=== PATIENT | female | born 1955 | race Caucasian/White ===

== ENCOUNTER 2018-07-01 14:01 | Observation (INO) | payer MEDICARE, BC ==
[~2018-07-01] VITALS: Ht 165.1 cm; Wt 96.0 kg
[2018-07-01] VITALS (10 sets, daily range): BP systolic 122–174; BP diastolic 74–104
[2018-07-01] MEDS ORDERED: diphenhydrAMINE 25mg capsule PO ONE (15:05)
[2018-07-01] MEDS ORDERED: LORazepam 0.5 MG tablet PO ONE (15:05)
[2018-07-01] MEDS ORDERED: ENAL20TA75 PO (15:18)
[2018-07-01] MEDS ORDERED: SERT25TA PO (15:18)
[2018-07-01] MEDS ORDERED: ASPI81TA52 PO (15:18)
[2018-07-01] MEDS ORDERED: HYDR-3972 PO (15:18)
[2018-07-01] MEDS ORDERED: MULT1TAB74 PO (15:18)
[2018-07-01] MEDS ORDERED: METO100T14 PO (15:18)
[2018-07-01] MEDS ORDERED: ALBU8.5H8 INH (15:18)
[2018-07-01] MEDS ORDERED: NITR0.4T51 SL (15:18)
[2018-07-01] MEDS ORDERED: ATOR40TA PO (15:18)
[2018-07-01] MEDS ORDERED: DIAZ10TA4 PO (15:18)
[2018-07-01] MEDS ORDERED: CHOL10002 PO (15:18)
[2018-07-01] MEDS ORDERED: OMEP40CA37 PO (15:18)
[2018-07-01] MEDS: normal saline 1000ml 1,000 ML IV SCH (15:53)
[2018-07-01] MEDS ORDERED: fentaNYL/PF 50MCG/1 ML 2ML syringe ONE (16:29)
[2018-07-01] MEDS ORDERED: LIDOcaine 1% (10mg/ml)w/preservative injection 20ml MDV ONE (16:29)
[2018-07-01] MEDS ORDERED: midazolam 2 mg/2 ml injection ONE (16:29)
[2018-07-01] MEDS ORDERED: heparin 1,000 UNITS/NS 500ml 500 ML ONE ×2 (16:30→16:58)
[2018-07-01] MEDS ORDERED: iohexol 350MG/ML 100ml bottle IV ONE (16:30)
[2018-07-01] MEDS ORDERED: atropine 0.1mg/ml 10ml syringe ONE (18:06)
[2018-07-01] MEDS ORDERED: heparin 1,000unit/ml 10ml vial 10 ML ONE (18:06)
[2018-07-01] MEDS ORDERED: ticagrelor 90mg tablet ONE (18:06)
[2018-07-01] MEDS ORDERED: iohexol 350 MG/ML 50ML vial IV ONE (18:08)
[2018-07-01] MEDS ORDERED: hydrALAZINE 20mg/ml inj. IV ONE (18:21)
[2018-07-01] MEDS ORDERED: HYDROcodone/acetaminophen 5mg/325mg tablet PO PRN (19:25)
[2018-07-01] MEDS ORDERED: ondansetron/PF 4mg/2ml inj IV PRN (19:25)
[2018-07-01] MEDS ORDERED: proCHLORperazine 10 MG/2 ml inj IV PRN (19:30)
[2018-07-01] MEDS ORDERED: OXAZEpam 15mg capsule PO PRN (19:30)
[2018-07-01] MEDS ORDERED: HYDROcodone/acetaminophen 10/325mg tab PO PRN ×2 (19:30→21:35)
[2018-07-01] MEDS ORDERED: nitroGLYCERIN 0.4mg SUBLingual tab SL PRN (21:35)
[2018-07-02] MEDS ORDERED: albuterol 2.5 MG/3 ML nebule NEB PRN
[2018-07-02] MEDS: normal saline 1000ml 1,000 ML IV SCH (02:27)
[2018-07-02 03:00] VITALS: BP 144/73
[2018-07-02 05:18] LABS: ALBUMIN 3.1 G/DL (3.4-5.0); ANION GAP 6 (8-16); BLOOD UREA NITROGEN 12 MG/DL (7-18); BUN/CREATININE RATIO 12.9 (6.6-38.0); CALCIUM 8.6 MG/DL (8.5-10.1); CHLORIDE 104 MMOL/L (99-107); CHOL/HDL RATIO 4.6 (0.00-4.99); CHOLESTEROL 160 MG/DL (0-200); CREATININE 0.93 MG/DL (0.40-0.90); GLUCOSE 123 MG/DL (70-104); HDL CHOLESTEROL 35 MG/DL (35-60); LDL CHOLESTEROL 80 MG/DL (50-100); SODIUM 142 MMOL/L (135-145); TOTAL CARBON DIOXIDE 32.3 MMOL/L (24-32); TRIGLYCERIDES 329 MG/DL (20-135); eGFR 61 ML/MIN
[2018-07-02 06:00] VITALS: BP 133/71
[2018-07-02] MEDS ORDERED: METO50TA16 PO (06:25)
[2018-07-02] MEDS ORDERED: NIFE60TA2 PO (06:25)
[2018-07-02] MEDS ORDERED: TICA90TA PO (06:25)
[2018-07-02 07:51] VITALS: BP_SYST 133
[2018-07-02] MEDS ORDERED: atorvastatin 20mg tablet PO SCH (08:00)
[2018-07-02] MEDS ORDERED: ticagrelor 90mg tablet PO SCH (08:00)
[2018-07-02] MEDS ORDERED: diazepam 5mg tablet PO PRN (08:00)
[2018-07-02] MEDS ORDERED: multivitamins, therapeutics tablet PO SCH (08:00)
[2018-07-02] MEDS ORDERED: metoprolol tartrate 50mg tablet PO SCH (08:00)
[2018-07-02] MEDS ORDERED: pantoprazole 40mg Tablet.DR PO SCH (08:00)
[2018-07-02] MEDS ORDERED: vitamin D (cholecalciferol) 1,000 unit tablet PO SCH (08:00)
[2018-07-02] MEDS ORDERED: sertraline 50mg tablet PO SCH ×2 (08:00)
[2018-07-02] MEDS ORDERED: aspirin 81mg tablet.DR PO SCH (08:00)
[2018-07-02] MEDS ORDERED: lisinopril 20mg tablet PO SCH (08:00)
== END 2018-07-02 11:10 | disposition home or self-care (01) ==
LOC: SSTAY O 14:01 → PCU 3S 21:03
PROVIDERS: ADMIT Internal Medicine Interventional Cardiology; ATTEND Internal Medicine Interventional Cardiology
DX: I25.110 Atherosclerotic heart disease of native coronary artery with unstable angina pectoris (principal); I10 Essential (primary) hypertension; E78.5 Hyperlipidemia, unspecified; R94.39 Abnormal result of other cardiovascular function study; F17.200 Nicotine dependence, unspecified, uncomplicated; F41.9 Anxiety disorder, unspecified
CPT/HCPCS: 36415; 80048; 80061; 87070; 93005; 93458; 96374; 99152; A6257; C1874; C9600; G0378; J0360; J1644; J2001; J2250; J2405; J3010; J7030; Q0163; Q9967; 99153; A4620; C1725; C1760; C1769; J0461

== ENCOUNTER 2021-10-30 14:26 | Day surgery (SDC) | payer MEDICARE, BC ==
[2021-10-25 15:49] LABS: BASOPHILS # (AUTO) 0.1 X10'3 (0-0.2); BASOPHILS % (AUTO) 0.7 % (0-1); EOSINOPHILS # (AUTO) 0.5 X10'3 (0-0.9); EOSINOPHILS % (AUTO) 3.7 % (0-6); HEMATOCRIT 42.4 % (35.0-45.0); LYMPHOCYTES # (AUTO) 2.4 X10'3 (1.1-4.8); LYMPHOCYTES % (AUTO) 18.9 % (21-51); MEAN CORPUSCULAR HEMOGLOBIN 28.8 PG (27.0-31.0); MEAN CORPUSCULAR HGB CONC 32.9 g/dL (33.0-36.5); MEAN CORPUSCULAR VOLUME 87.6 FL (78-98); MEAN PLATELET VOLUME 7.9 FL (7.4-10.4); MONOCYTES # (AUTO) 0.5 X10'3 (0-0.9); MONOCYTES % (AUTO) 4.1 % (2-12); NEUTROPHILS # (AUTO) 9.3 X10'3 (1.8-7.7); NEUTROPHILS % (AUTO) 72.6 % (42-75); PLATELET COUNT 289 X10'3 (140-440); RED BLOOD COUNT 4.84 X10'6 (4.20-5.60); RED CELL DISTRIBUTION WIDTH 16.5 % (11.5-14.5); WHITE BLOOD COUNT 12.8 X10'3 (4.5-11.0)
[2021-10-25 15:55] LABS: APTT 26 SECONDS (22-32)
[2021-10-25 15:57] LABS: ALBUMIN 3.3 G/DL (3.4-5.0); BLOOD UREA NITROGEN 16 MG/DL (7-18); BUN/CREATININE RATIO 17.6 (6.6-38.0); CALCIUM 8.6 MG/DL (8.5-10.1); CHLORIDE 103 MMOL/L (99-107); CREATININE 0.91 MG/DL (0.40-0.90); GLUCOSE 159 MG/DL (70-104); POTASSIUM 4.5 MMOL/L (3.5-5.1); eGFR 61 ML/MIN
[2021-10-25 16:03] LABS: ANION GAP 4 (8-16); SODIUM 139 MMOL/L (135-145)
[2021-10-30] VITALS (11 sets, daily range): BP systolic 127–150; BP diastolic 55–91
[~2021-10-30] VITALS: Ht 165.1 cm; Wt 105.5 kg
[~2021-10-30 14:26] MED LIST: ALBU8.5H17 INH; ASPI81TA52 PO; ATOR40TA PO; CHOL10002 PO; DIAZ10TA4 PO; ENAL20TA75 PO; HYDR-3972 PO; METO50TA16 PO; MULT-620 PO; NIFE60TA2 PO; NITR0.4T51 SL; OMEP40CA21 PO; SERT25TA PO; TICA90TA PO; verapamil 2.5 mg/ml inj IV ONE
[2021-10-30] MEDS ORDERED: diphenhydrAMINE 25mg capsule PO PRN (14:55)
[2021-10-30] MEDS ORDERED: LORazepam 0.5 MG tablet PO PRN (14:55)
[2021-10-30] MEDS ORDERED: normal saline 1,000 ML IV SCH (14:55)
[2021-10-30] MEDS ORDERED: ISOS60TA71 PO (15:03)
[2021-10-30] MEDS ORDERED: TIOT18CA3 (15:03)
[2021-10-30] MEDS ORDERED: METO50TA17 PO (15:03)
[2021-10-30] MEDS ORDERED: LIDOcaine 1% (10mg/ml)w/preservative inj. 20ml MDV ONE (16:00)
[2021-10-30] MEDS ORDERED: nitroGLYCERIN-Tridil 50MG/D5W 250 ML IV ONE (16:00)
[2021-10-30] MEDS ORDERED: midazolam 1 mg/ML 2ml injection ONE ×2 (16:00→16:34)
[2021-10-30] MEDS ORDERED: verapamil 2.5 mg/ml inj IV ONE (16:00)
[2021-10-30] MEDS ORDERED: fentaNYL/PF 50MCG/1 ML 2ML syringe ONE (16:00)
[2021-10-30] MEDS ORDERED: iohexol 350MG/ML 100ml bottle IV ONE (16:01)
[2021-10-30] MEDS ORDERED: heparin 1,000unit/ml 10ml vial 10 ML ONE (16:01)
--- NOTE | 2021-10-30 17:15 | NUR ---
Received pt form prosthetics lab technician. Vasc band X2 to right arm. Phoned daughter and notified of approximate DC home time. Offered pt sandwich to eat, pt wants to sleep currently, will continue to check in on pt.
--- NOTE | 2021-10-30 17:51 | NUR ---
Pt eating sandwich and drinking water without difficulty. Vasc bands X2 remain inflated without sighs of bleeding, or hematoma.
--- NOTE | 2021-10-30 19:00 | NUR ---
Vasc Bands removed. Small old quarter size hematoma noted between vasc bands, pt aware and visualized and felt hematoma. No new bleeding or oozing noted. Site cleaned with maxi swab, sterile 2x2 and tegaderm applied, with pressure dressing over top.
--- NOTE | 2021-10-30 19:15 | NUR ---
Written and Verbal DC instructions given to pt, verbalizes understanding.
--- NOTE | 2021-10-30 19:26 | NUR ---
Daughter at bedside, DC instructions gone over with daughter, verbalizes understanding. PIV DC cath intact. VSS. Denies pain at procedure site. Right radial dressing CD&I, no new bleeding, bruising or hematoma noted. RN assisted pt to get dressed. Pt stable on feet with amb and transfer to .
--- NOTE | 2021-10-30 19:35 | NUR ---
DC to home with daughter. Transferred pt to private car via WC, pt a ble to transfer self to car, steady on feet.
== END 2021-10-30 19:35 | disposition home or self-care (01) ==
LOC: SSTAY O 14:26
PROVIDERS: ATTEND Internal Medicine Interventional Cardiology
DX: R94.39 Abnormal result of other cardiovascular function study (principal); R07.89 Other chest pain; I25.118 Atherosclerotic heart disease of native coronary artery with other forms of angina pectoris; I10 Essential (primary) hypertension; E78.5 Hyperlipidemia, unspecified; Z79.899 Other long term (current) drug therapy; Z79.82 Long term (current) use of aspirin; F17.290 Nicotine dependence, other tobacco product, uncomplicated; Z95.5 Presence of coronary angioplasty implant and graft
CPT/HCPCS: 36415; 76937; 80048; 85025; 85610; 85730; 93005; 93458; 99152; 99153; C1769; C1894; J1644; J2250; J3010; J3490; Q0163; Q9967; A4620

== ENCOUNTER 2024-07-20 11:40 | Day surgery (SDC) | payer MEDICARE, BC ==
[2024-07-20] VITALS (10 sets, daily range): BP systolic 143–225; BP diastolic 84–122; PULSE 67–81; RESP 16; TEMP 98.1; O2SAT 94–97
[~2024-07-20] VITALS: Ht 165.1 cm; Wt 88.7 kg
[~2024-07-20 11:40] MED LIST changes: +ISOS60TA71 PO; -METO50TA16 PO; +METO50TA17 PO; -MULT-620 PO; -NIFE60TA2 PO; -TICA90TA PO; +TIOT18CA3; -verapamil 2.5 mg/ml inj IV ONE
[2024-07-20 12:32] LABS: BASOPHILS # (AUTO) 0.1 X10'3 (0-0.2); BASOPHILS % (AUTO) 0.9 % (0-1); EOSINOPHILS # (AUTO) 0.3 X10'3 (0-0.9); EOSINOPHILS % (AUTO) 2.6 % (0-6); HEMOGLOBIN 14.8 g/dl (12.0-16.0); LYMPHOCYTES # (AUTO) 2.5 X10'3 (1.1-4.8); LYMPHOCYTES % (AUTO) 19.4 % (21-51); MEAN CORPUSCULAR HEMOGLOBIN 29.7 PG (27.0-31.0); MEAN CORPUSCULAR HGB CONC 33.7 g/dL (33.0-36.5); MEAN CORPUSCULAR VOLUME 88.2 FL (78-98); MEAN PLATELET VOLUME 7.7 FL (7.4-10.4); MONOCYTES # (AUTO) 0.5 X10'3 (0-0.9); MONOCYTES % (AUTO) 4.1 % (2-12); NEUTROPHILS # (AUTO) 9.5 X10'3 (1.8-7.7); PLATELET COUNT 312 X10'3 (140-440); RED BLOOD COUNT 4.99 X10'6 (4.20-5.60); RED CELL DISTRIBUTION WIDTH 14.8 % (11.5-14.5)
[2024-07-20 12:44] LABS: APTT 25 SECONDS (22-32); PROTHROMBIN TIME 10.5 SECONDS (9.0-12.0)
[2024-07-20 12:55] LABS: ALBUMIN 3.9 G/DL (3.4-5.0); ANION GAP 8 (8-16); BLOOD UREA NITROGEN 19 MG/DL (7-18); BUN/CREATININE RATIO 20.2 (10.0-20.0); CALCIUM 8.9 MG/DL (8.5-10.1); CHLORIDE 102 MMOL/L (99-107); CREATININE 0.94 MG/DL (0.40-0.90); GLUCOSE 128 MG/DL (70-104); POTASSIUM 4.1 MMOL/L (3.5-5.1); SODIUM 140 MMOL/L (135-145); TOTAL CARBON DIOXIDE 29.7 MMOL/L (24-32); eCRCL 49 ML/MIN; eGFR 59 ML/MIN
[2024-07-20] MEDS: LORazepam 0.5 MG tablet PO PRN (13:00)
[2024-07-20] MEDS: diphenhydrAMINE 25mg capsule PO PRN (13:00)
[2024-07-20] MEDS: normal saline 1,000 ML IV SCH (13:01)
[2024-07-20] MEDS ORDERED: LIDOcaine 1% (10mg/ml) 2ml vial ONE (13:20)
[2024-07-20] MEDS ORDERED: midazolam 1 mg/ML 2ml injection ONE ×2 (13:20→14:02)
[2024-07-20] MEDS ORDERED: verapamil 2.5 mg/ml inj IV ONE (13:20)
[2024-07-20] MEDS ORDERED: iohexol 350MG/ML 100ml bottle IV ONE ×2 (13:21→14:23)
[2024-07-20] MEDS ORDERED: fentaNYL/PF 50MCG/1 ML 2ML syringe ONE (13:21)
[2024-07-20] MEDS ORDERED: heparin 1,000unit/ml 10ml vial 10 ML ONE (13:21)
[2024-07-20] MEDS ORDERED: nitroGLYCERIN 500mcg/5mL D5W 5 ML IV ONE (13:24)
[2024-07-20] MEDS ORDERED: CLOT15CR73 TOP (14:06)
[2024-07-20] MEDS ORDERED: NYST30CR34 TOP (14:06)
[2024-07-20] MEDS ORDERED: ONDA-243 PO (14:06)
[2024-07-20] MEDS ORDERED: METF-438 PO (14:06)
[2024-07-20] MEDS ORDERED: ALBU18HF2 INH (14:06)
[2024-07-20] MEDS ORDERED: CEPH500C82 PO (14:06)
[2024-07-20] MEDS ORDERED: HYDR12.55 PO (14:06)
[2024-07-20] MEDS ORDERED: aspirin 325mg tablet ONE (14:36)
[2024-07-20] MEDS ORDERED: clopidogrel 300mg tablet ONE (14:36)
[2024-07-20] MEDS: hydrALAZINE 20mg/ml inj. IV ONE (15:23)
[2024-07-20] MEDS: ondansetron/PF 4mg/2ml inj IV ONE (15:26)
[2024-07-20] MEDS ORDERED: HYDROcodone/acetaminophen 10/325mg tab PO PRN (15:45)
[2024-07-20] MEDS ORDERED: HYDROcodone/acetaminophen 5mg/325mg tablet PO PRN (15:45)
[2024-07-20] MEDS ORDERED: CLOP75TA34 PO (15:50)
[2024-07-20] MEDS: lisinopril 20mg tablet PO ONE (15:54)
[2024-07-20] MEDS: labetalol 20mg/4ml (5mg/ml) syringe IV ONE (16:44)
[2024-07-20] MEDS: nitroGLYCERIN 0.4mg SUBLingual tab SL ONE (16:48)
== END 2024-07-20 18:55 | disposition home or self-care (01) ==
LOC: SSTAY O 11:40
PROVIDERS: ATTEND Student in an Organized Health Care Education/Training Program
DX: R94.39 Abnormal result of other cardiovascular function study (principal); I25.10 Atherosclerotic heart disease of native coronary artery without angina pectoris; I25.2 Old myocardial infarction; I11.9 Hypertensive heart disease without heart failure; E11.9 Type 2 diabetes mellitus without complications; E78.00 Pure hypercholesterolemia, unspecified; Z79.82 Long term (current) use of aspirin; Z79.84 Long term (current) use of oral hypoglycemic drugs; Z79.891 Long term (current) use of opiate analgesic; Z79.899 Other long term (current) drug therapy; Z95.5 Presence of coronary angioplasty implant and graft; Z98.890 Other specified postprocedural states
CPT/HCPCS: 36415; 80048; 82948; 85025; 85610; 85730; 93005; 93458; 99152; 99153; A4615; A6258; A6402; C1725; C1751; C1769; C1874; C1894; C9600; J0360; J1644; J2003; J2250; J2405; J3010; J3490; J7030; Q0163; Q9967; Z7610